=== PATIENT | female | born 1955 | race Two or more races ===

== ENCOUNTER → 2016-11-01 | Outpatient (REF) | payer OTHER | LOC: M LAB REF 12:06 | PROVIDERS: ATTEND Surgery | DX: D04.5 Carcinoma in situ of skin of trunk (principal) ==

== ENCOUNTER → 2017-04-09 | Outpatient (REF) | payer OTHER ==
[2017-04-10 13:09] LABS: INFLUENZA A AMPLIFICATION NEGATIVE (NEGATIVE); INFLUENZA B AMPLIFICATION NEGATIVE (NEGATIVE)
== END ==
LOC: M SFHCLERA 19:49
DX: J11.1 Influenza due to unidentified influenza virus with other respiratory manifestations (principal)

== ENCOUNTER 2022-05-10 19:53 | Inpatient (IN) | payer MEDICARE, OTHER ==
[~2022-05-10] VITALS: Ht 172.7 cm; Wt 76.5 kg
[2022-05-10 20:04] VITALS: BP 145/64
[2022-05-10 20:29] LABS: BASO # 0.1 10^3/uL (0.0-0.2); EOS # 0.2 10^3/uL (0.0-0.5); EOS % 2.6 % (0.0-3.0); HEMATOCRIT 23.8 % (36.0-47.0); HEMOGLOBIN 7.2 g/dl (12.0-15.5); LYMPH # 2.6 10^3/uL (1.5-5.0); MEAN CORPUSCULAR HEMOGLOBIN 23.8 pg (27.0-33.0); MEAN CORPUSCULAR HGB CONC 30.3 g/dl (32.0-36.5); MEAN CORPUSCULAR VOLUME 78.8 fl (80.0-96.0); MONO # 0.7 10^3/uL (0.0-0.8); MONO % 9.8 % (2.0-8.0); NEUTROPHILS # 3.6 10^3/uL (1.5-8.5); NEUTROPHILS % 50.2 % (36.0-66.0); PLATELET COUNT, AUTOMATED 426 10^3/uL (150-450); RED BLOOD COUNT 3.02 10^6/uL (4.00-5.40); WHITE BLOOD COUNT 7.2 10^3/uL (4.0-10.0)
[2022-05-10 20:53] LABS: ALBUMIN 3.6 G/DL (3.2-5.2); ALKALINE PHOSPHATASE 65 U/L (46-116); ALT/SGPT 18 U/L (7.0-40); AST/SGOT 18 U/L (<34); BILIRUBIN,TOTAL 1.8 MG/DL (0.3-1.2); BLOOD UREA NITROGEN 13 MG/DL (9-23); CALCIUM LEVEL 8.1 MG/DL (8.3-10.6); CARBON DIOXIDE LEVEL 25 MMOL/L (20-31); CHLORIDE LEVEL 109 MMOL/L (98-107); CREATININE FOR GFR 0.55 MG/DL (0.55-1.30); GLOMERULAR FILTRATION RATE > 60.0 (>45); GLUCOSE, FASTING 97 MG/DL (74-106); POTASSIUM SERUM 3.8 MMOL/L (3.5-5.1); SODIUM LEVEL 142 MMOL/L (136-145); TOTAL PROTEIN 6.3 G/DL (5.7-8.2)
[2022-05-10] MEDS ORDERED: NS 1,000 ML IV SCH (21:50)
[2022-05-10] MEDS: SUCRALFATE 1 GM TAB PO SCH (23:06)
[2022-05-10] MEDS: PANTOPRAZOLE 40MG VIAL IV SCH (23:06)
[2022-05-10] MEDS ORDERED: NITROFURANTOIN (MACROBID) 100 MG CAP PO ONE (23:25)
[2022-05-11] VITALS (9 sets, daily range): BP systolic 108–136; BP diastolic 58–84
[2022-05-11 00:56] LABS: MEAN CORPUSCULAR HEMOGLOBIN 24.1 pg (27.0-33.0); MEAN CORPUSCULAR HGB CONC 30.5 g/dl (32.0-36.5); MEAN CORPUSCULAR VOLUME 79.1 fl (80.0-96.0); PLATELET COUNT, AUTOMATED 407 10^3/uL (150-450); RED BLOOD COUNT 2.78 10^6/uL (4.00-5.40); WHITE BLOOD COUNT 7.5 10^3/uL (4.0-10.0)
[2022-05-11] MEDS ORDERED: ERGO500029 PO (01:03)
[2022-05-11] MEDS ORDERED: XARE20TA PO (01:03)
[2022-05-11] MEDS ORDERED: LORA-622 PO (01:03)
[2022-05-11] MEDS ORDERED: TRET0.02 EXT (01:03)
[2022-05-11] MEDS ORDERED: TIAZ1CAP4 PO (01:03)
[2022-05-11] MEDS ORDERED: ALEN70TA82 PO (01:03)
[2022-05-11] MEDS ORDERED: NITR50CA34 PO (01:03)
[2022-05-11] MEDS ORDERED: ROPI0.253 PO (01:03)
[2022-05-11] MEDS ORDERED: HOME MED LIST COMPLETE! XX SCH (01:05)
[2022-05-11 01:27] LABS: HEMOGLOBIN 6.7 g/dl (12.0-15.5)
[2022-05-11] MEDS ORDERED: LORATADINE 10 MG TAB PO PRN (02:10)
[2022-05-11] MEDS ORDERED: rOPINIRole 0.25 MG TAB(REQUIP) PO ONE ×2 (05:00)
[2022-05-11] MEDS: SUCRALFATE 1 GM TAB PO SCH ×4 (05:56→23:53)
[2022-05-11 07:25] LABS: HEMATOCRIT 25.6 % (36.0-47.0); HEMOGLOBIN 7.9 g/dl (12.0-15.5); MEAN CORPUSCULAR HEMOGLOBIN 24.5 pg (27.0-33.0); MEAN CORPUSCULAR HGB CONC 30.9 g/dl (32.0-36.5); MEAN CORPUSCULAR VOLUME 79.5 fl (80.0-96.0); PLATELET COUNT, AUTOMATED 405 10^3/uL (150-450); RED BLOOD COUNT 3.22 10^6/uL (4.00-5.40); WHITE BLOOD COUNT 5.2 10^3/uL (4.0-10.0)
[2022-05-11 07:56] LABS: ALBUMIN 3.1 G/DL (3.2-5.2); ALKALINE PHOSPHATASE 62 U/L (46-116); ALT/SGPT 17 U/L (7.0-40); AST/SGOT 20 U/L (<34); BILIRUBIN,TOTAL 1.4 MG/DL (0.3-1.2); BLOOD UREA NITROGEN 11 MG/DL (9-23); CALCIUM LEVEL 8.2 MG/DL (8.3-10.6); CARBON DIOXIDE LEVEL 24 MMOL/L (20-31); CHLORIDE LEVEL 110 MMOL/L (98-107); CREATININE FOR GFR 0.55 MG/DL (0.55-1.30); GLOMERULAR FILTRATION RATE > 60.0 (>45); GLUCOSE, FASTING 96 MG/DL (74-106); MAGNESIUM LEVEL 1.9 MG/DL (1.8-2.4); POTASSIUM SERUM 3.9 MMOL/L (3.5-5.1); SODIUM LEVEL 141 MMOL/L (136-145); TOTAL PROTEIN 5.7 G/DL (5.7-8.2)
[2022-05-11] MEDS: PANTOPRAZOLE 40MG VIAL IV SCH ×2 (08:18→20:08)
[2022-05-11] MEDS: GASTROGRAFIN SOLUTION 30ML PO SCH ×2 (08:49→09:18)
[2022-05-11] MEDS ORDERED: ISOVUE-370 76% 100ML VIAL As Ordered ONE (10:46)
[2022-05-11 11:39] LABS: IRON (FE) 254 UG/DL (50-170); PERCENT SATURATION 78.4 % (13.2-45.0); TOTAL IRON BINDING CAPACITY 324 UG/DL (250-425)
[2022-05-11 12:23] LABS: HEMATOCRIT 26.5 % (36.0-47.0); HEMOGLOBIN 8.5 g/dl (12.0-15.5)
[2022-05-11 12:43] LABS: PERCENT SATURATION 49.3 % (13.2-45.0)
[2022-05-11 13:59] LABS: BILIRUBIN,DIRECT 0.3 MG/DL (<0.4)
[2022-05-11 15:54] LABS: HEMATOCRIT 26.8 % (36.0-47.0); HEMOGLOBIN 8.4 g/dl (12.0-15.5)
[2022-05-11] MEDS ORDERED: ACETAMINOPHEN TAB 650MG DOSE (2X325MG) PO PRN (16:55)
[2022-05-11] MEDS ORDERED: rOPINIRole 0.25 MG TAB(REQUIP) PO SCH (21:00)
[2022-05-11] MEDS ORDERED: NITROFURANTOIN 50 MG PO SCH (21:00)
[2022-05-12] VITALS (8 sets, daily range): BP systolic 108–141; BP diastolic 60–77
[2022-05-12] MEDS ORDERED: UNRESOLVED PATIENT OWN MED ORDER XX SCH (00:01)
[2022-05-12 00:27] LABS: HEMATOCRIT 24.4 % (36.0-47.0); HEMOGLOBIN 7.6 g/dl (12.0-15.5)
[2022-05-12] MEDS: SUCRALFATE 1 GM TAB PO SCH ×2 (05:24→12:28)
[2022-05-12 06:09] LABS: HEMATOCRIT 25.3 % (36.0-47.0); HEMOGLOBIN 7.8 g/dl (12.0-15.5); MEAN CORPUSCULAR HEMOGLOBIN 24.9 pg (27.0-33.0); MEAN CORPUSCULAR HGB CONC 30.8 g/dl (32.0-36.5); MEAN CORPUSCULAR VOLUME 80.8 fl (80.0-96.0); PLATELET COUNT, AUTOMATED 420 10^3/uL (150-450); RED BLOOD COUNT 3.13 10^6/uL (4.00-5.40)
[2022-05-12 06:42] LABS: ALBUMIN 3.1 G/DL (3.2-5.2); ALKALINE PHOSPHATASE 62 U/L (46-116); ALT/SGPT 15 U/L (7.0-40); AST/SGOT 18 U/L (<34); BILIRUBIN,TOTAL 0.4 MG/DL (0.3-1.2); BLOOD UREA NITROGEN 12 MG/DL (9-23); CALCIUM LEVEL 8.3 MG/DL (8.3-10.6); CARBON DIOXIDE LEVEL 26 MMOL/L (20-31); CHLORIDE LEVEL 109 MMOL/L (98-107); CREATININE FOR GFR 0.67 MG/DL (0.55-1.30); GLOMERULAR FILTRATION RATE > 60.0 (>45); GLUCOSE, FASTING 93 MG/DL (74-106); PHOSPHORUS LEVEL 4.4 MG/DL (2.4-5.1); POTASSIUM SERUM 4.2 MMOL/L (3.5-5.1); SODIUM LEVEL 141 MMOL/L (136-145); TOTAL PROTEIN 5.6 G/DL (5.7-8.2)
[2022-05-12] MEDS ORDERED: OMEP40CA4 PO (09:08)
[2022-05-12] MEDS: PANTOPRAZOLE 40MG VIAL IV SCH (09:42)
[2022-05-12] MEDS ORDERED: CARA1TAB6 PO ×2 (11:52→15:59)
[2022-05-12] MEDS ORDERED: PANT40TA29 PO ×2 (11:53→15:59)
[2022-05-12] MEDS ORDERED: PREVNAR-20 VACCINE 0.5ML SYRINGE IM.IMMUN ONE (14:00)
[2022-05-12 14:36] LABS: HEMATOCRIT 30.3 % (36.0-47.0); HEMOGLOBIN 9.4 g/dl (12.0-15.5)
== END 2022-05-12 16:23 | disposition home or self-care (01) | DRG 812 ==
LOC: M ICU 19:53 → M MSPAV 05-11 20:39
PROVIDERS: ADMIT Internal Medicine; ATTEND Internal Medicine
PROC: 30233N1 Transfusion of Nonautologous Red Blood Cells into Peripheral Vein, Percutaneous Approach (ICD-10-PCS; principal; 2022-05-11)
DX: D62 Acute posthemorrhagic anemia (principal); I48.91 Unspecified atrial fibrillation; I34.1 Nonrheumatic mitral (valve) prolapse; E55.9 Vitamin D deficiency, unspecified; M72.2 Plantar fascial fibromatosis; E80.6 Other disorders of bilirubin metabolism; G25.81 Restless legs syndrome; Z90.79 Acquired absence of other genital organ(s); Z87.891 Personal history of nicotine dependence; Z87.440 Personal history of urinary (tract) infections; Z79.899 Other long term (current) drug therapy; Z88.1 Allergy status to other antibiotic agents; Z91.018 Allergy to other foods

== ENCOUNTER 2022-08-01 09:53 | Day surgery (SDC) | payer MEDICARE, OTHER ==
[~2022-08-01] VITALS: Ht 172.7 cm; Wt 75.7 kg
[~2022-08-01 09:53] MED LIST: ALEN70TA82 PO; CARA1TAB6 PO; COLL1CAP PO; DILT180C38 PO; ERGO500029 PO; FLUT15.820; IRON65TA2 PO; LORA-622 PO; LORA-930 PO; NITR50CA34 PO; NS 1,000 ML IV ONE; OMEP40CA4 PO; PANT40TA29 PO; ROPI0.253 PO; SENN-186 PO; SUCR1TAB56 PO; TIAZ1CAP4 PO; TRET0.02 EXT; XARE20TA PO
[2022-08-01] MEDS ORDERED: propofoL 200 MG/20 ML VIAL As Ordered ONE ×3 (11:07→11:44)
[2022-08-01] MEDS ORDERED: fentaNYL 100 MCG/2 ML INJECTION As Ordered ONE (11:08)
[2022-08-01 12:22] VITALS: BP 102/59
== END 2022-08-01 12:23 | disposition home or self-care (01) ==
LOC: M OPP 09:53
PROVIDERS: ATTEND Surgery
DX: D50.0 Iron deficiency anemia secondary to blood loss (chronic) (principal); K64.9 Unspecified hemorrhoids; K63.89 Other specified diseases of intestine; K55.20 Angiodysplasia of colon without hemorrhage; K92.2 Gastrointestinal hemorrhage, unspecified; K29.50 Unspecified chronic gastritis without bleeding; K25.9 Gastric ulcer, unspecified as acute or chronic, without hemorrhage or perforation; Z79.01 Long term (current) use of anticoagulants; Z79.51 Long term (current) use of inhaled steroids; Z79.899 Other long term (current) drug therapy; Z87.891 Personal history of nicotine dependence
CPT/HCPCS: 43239; 45378; 88305; J3010

== ENCOUNTER → 2023-08-22 | Outpatient (REF) | payer MEDICARE, OTHER ==
[~2023-08-22] MED LIST changes: -NS 1,000 ML IV ONE; -ROPI0.253 PO; +ROPI5TAB19 PO
== END ==
LOC: M LAB REF 16:51
PROVIDERS: ATTEND Family Medicine
DX: N76.0 Acute vaginitis (principal); R30.0 Dysuria

== ENCOUNTER → 2023-11-14 | Outpatient (REF) | payer MEDICARE, OTHER | LOC: M LAB REF 17:13 | PROVIDERS: ATTEND Physician Assistant | DX: N39.0 Urinary tract infection, site not specified (principal) ==

== ENCOUNTER 2024-10-23 08:00 | Day surgery (SDC) | payer MEDICARE, OTHER ==
[~2024-10-23] VITALS: Ht 172.7 cm; Wt 73.5 kg
[~2024-10-23 08:00] MED LIST changes: +ATOR1TAB21 PO; +LIDOCAINE 2% 100 MG/5 ML SDV (FOR ANES.) As Ordered ONE; +LORA-1164 PO; -LORA-622 PO; +MAGN400C PO; +SERT25TA21 PO; +TRAZ-252 PO; -TRET0.02 EXT; +TRET0.046 EXT; +VITA250T27 PO
[2024-10-23] MEDS ORDERED: ONDANSETRON 4MG 2ML VIAL As Ordered ONE (09:07)
[2024-10-23 09:21] VITALS: TEMP 97.6
[2024-10-23 09:41] VITALS: BP 119/57; O2SAT 98
== END 2024-10-23 09:46 | disposition home or self-care (01) ==
LOC: M OPP 08:00
PROVIDERS: ATTEND Surgery
DX: K30 Functional dyspepsia (principal); R11.10 Vomiting, unspecified; I48.91 Unspecified atrial fibrillation; Z88.1 Allergy status to other antibiotic agents; Z91.018 Allergy to other foods; Z79.51 Long term (current) use of inhaled steroids; Z79.01 Long term (current) use of anticoagulants; Z87.891 Personal history of nicotine dependence
CPT/HCPCS: 43235; J2405; J3010

== ENCOUNTER → 2024-11-11 | Outpatient (CLI) | payer MEDICARE, OTHER ==
[~2024-11-11] MED LIST changes: -LIDOCAINE 2% 100 MG/5 ML SDV (FOR ANES.) As Ordered ONE
[2024-11-11 12:17] LABS: CREATININE FOR GFR 0.71 MG/DL (0.55-1.30); GLOMERULAR FILTRATION RATE > 90.0 (>45)
== END ==
LOC: M LAB 11:26
PROVIDERS: ATTEND Physician Assistant
DX: Z01.818 Encounter for other preprocedural examination (principal); R11.2 Nausea with vomiting, unspecified

== ENCOUNTER → 2024-11-16 | Outpatient (CLI) | payer MEDICARE, OTHER ==
[~2024-11-16] MED LIST changes: +ISOVUE-370 76% 100 ML VIAL ONE
== END ==
LOC: M PLAIMG 12:15
PROVIDERS: ATTEND Physician Assistant
DX: R11.2 Nausea with vomiting, unspecified (principal)
CPT/HCPCS: 74177; Q9967